=== PATIENT | female | born 1970 | race Caucasian/White ===

== ENCOUNTER → 2025-05-17 | Outpatient (CLI) | payer SELFPAY ==
--- NOTE | 2025-05-17 17:00 | RAD_ITS ---
EXAM: XR Cervical Spine, 6 or More Views CLINICAL INDICATION: SOMATIC DYSFX CERVICAL REGION TECHNIQUE: Frontal, lateral, oblique and flexion/extension views of the cervical spine. COMPARISON: No relevant prior studies available. FINDINGS: VERTEBRAE: Degenerative facet arthropathy throughout the cervical spine. Normal alignment. No acute fracture or significant dynamic instability. DISC SPACES: Degenerative disc disease throughout the cervical spine. SOFT TISSUES: Unremarkable. RAD/Cerv Spine Obl/Flex/Ext Comp IMPRESSION: 1. No acute fracture or significant dynamic instability. 2. If symptoms persist, further evaluation with MRI is recommended. 3. Degenerative changes of the cervical spine as described. Reading Location: [id number]
--- NOTE | 2025-05-17 17:00 | RAD_ITS ---
EXAM: XR Lumbosacral Spine, 4 or 5 Views CLINICAL INDICATION: SOMATIC DYSFX LUMBAR REGION TECHNIQUE: Frontal, lateral and bilateral oblique views of the lumbar spine. COMPARISON: No relevant prior studies available. FINDINGS: VERTEBRAE: Degenerative facet arthropathy throughout the lumbar spine, most prominent in the lower lumbar spine. Normal alignment. No acute fracture. SACRUM/COCCYX: Unremarkable as visualized. No acute fracture. DISC SPACES: Degenerative disc disease throughout the lumbar spine. SOFT TISSUES: Unremarkable. RAD/L/S Spine Min 4 Views IMPRESSION: 1. No acute fracture. 2. If symptoms persist, further evaluation with MRI is recommended. 3. Degenerative changes lumbar spine as described. Reading Location: [id number]
== END | disposition home or self-care (01) ==
PROVIDERS: Referring Provider Chiropractor Orthopedic; Visit Provider Chiropractor Orthopedic
DX: M99.01 Segmental and somatic dysfunction of cervical region (principal); M99.03 Segmental and somatic dysfunction of lumbar region; M54.2 Cervicalgia
CPT/HCPCS: 72052; 72110